=== PATIENT | male | born 1985 | race African-American/Black ===

== ENCOUNTER 2019-09-07 07:07 | Day surgery (SDC) | payer BC ==
[2019-09-06 17:35] VITALS: BMI 21.4
[2019-09-07] MEDS ORDERED: LIDOCAINE HCL 1%, 10 MG/ML (20ML VIAL) ONE (08:22)
[2019-09-07] MEDS ORDERED: MIDAZOLAM HCL 2 MG/2 ML SINGLE DOSE VIAL ONE ×3 (08:38→09:35)
[2019-09-07] MEDS ORDERED: ROCURONIUM BROMIDE 50 MG/5 ML SYRINGE ONE (08:39)
[2019-09-07] MEDS ORDERED: SUCCINYLCHOLINE CHLORIDE 200 MG/10 ML SYRINGE ONE (08:39)
[2019-09-07] MEDS ORDERED: PROPOFOL 20 ML ONE ×2 (08:39)
[2019-09-07] MEDS ORDERED: ONDANSETRON 4 MG/2 ML VIAL IVPUSH PRN (08:54)
[2019-09-07] MEDS ORDERED: LACTATED RINGERS SOLUTION 1,000 ML IV SCH (09:00)
--- NOTE | 2019-09-07 09:18 | HP ---
Admitting History and Physical - Admission Chief Complaint: bilateral upper ext weakness. Here for muscle biopsy left biceps Limitations to Obtaining History: No Limitations - Smoking History Smoking history: Never smoked Have you smoked in the past 12 months: No - Alcohol/Substance Use Hx Alcohol Use: Yes (OCCAS) Home Medications - Allergies Allergies/Adverse Reactions: Allergies Allergy/AdvReac Type Severity Reaction Status Date / Time No Known Allergies Allergy Verified 09/06/19 17:36 - Home Medications Home Medications: Ambulatory Orders NK [No Known Home Medication] 09/06/19 Review of Systems - Review of Systems Constitutional: reports: No Symptoms Eyes: reports: No Symptoms HENT: reports: No Symptoms Neck: reports: No Symptoms Cardiovascular: reports: No Symptoms Respiratory: reports: No Symptoms Gastrointestinal: reports: No Symptoms Genitourinary: reports: No Symptoms Musculoskeletal: reports: No Symptoms Integumentary: reports: No Symptoms Neurological: reports: No Symptoms Endocrine: reports: No Symptoms Hematology/Lymphatic: reports: No Symptoms Psychiatric: reports: No Symptoms Physical Examination Vital Signs: Vital Signs Temperature 98.3 F 09/07/19 07:27 Pulse Rate 88 09/07/19 07:27 Respiratory Rate 18 09/07/19 07:27 Blood Pressure 124/77 09/07/19 07:27 O2 Sat by Pulse Oximetry (%) Constitutional: Yes: Well Nourished, No Distress, Calm Eyes: Yes: WNL, Conjunctiva Clear, EOM Intact HENT: Yes: WNL, Atraumatic, Normocephalic Neck: Yes: WNL, Supple, Trachea Midline Cardiovascular: Yes: WNL, Regular Rate and Rhythm Respiratory: Yes: WNL, Regular, CTA Bilaterally Gastrointestinal: Yes: WNL, Normal Bowel Sounds Musculoskeletal: Yes: WNL Extremities: Yes: WNL Edema: No Peripheral Pulses WNL: Yes Integumentary: Yes: WNL Neurological: Yes: WNL, Alert, Oriented ...Motor Strength: WNL Psychiatric: Yes: WNL Problem List - Problems (1) Upper extremity weakness Assessment/Plan: for left biceps muscle biopsy today Code(s): R29.898 - [facility] SYMPTOMS AND SIGNS INVOLVING THE MUSCULOSKELETAL SYSTEM
[2019-09-07] MEDS ORDERED: ceFAZolin SODIUM 1 GM VIAL IVPB ONE (09:39)
[2019-09-07] MEDS ORDERED: LIDOCAINE HCL 1%, 10 MG/ML (20ML VIAL) NR ONE (09:39)
--- NOTE | 2019-09-07 10:15 | OP ---
Operative Note - Note: Operative Date: 09/07/19 Pre-Operative Diagnosis: upper extremity weakness Operation: Left biceps muscle biopsy Post-Operative Diagnosis: Same as Pre-op Surgeon: Tio Alvares Anesthesia: Fractional Estimated Blood Loss (mls): 20 Operative Report Dictated: Yes
--- NOTE | 2019-09-07 11:05 | OP ---
DATE OF OPERATION: 09/07/2019 PREOPERATIVE DIAGNOSIS: Upper extremity weakness. POSTOPERATIVE DIAGNOSIS: Upper extremity weakness. PROCEDURE: Left biceps muscle biopsy. SURGEON: Tio Jimenez DO ANESTHESIA: Fractional. BLOOD LOSS: 20 mL. Patient is a 34-year-old male referred from Neurology for upper extremity weakness. After EMGs, Neurology is asking for a left biceps muscle biopsy. Patient was consented for the procedure, understanding all risks, benefits, and alternatives; was then taken to the operating room. Once in the operating room, he was laid on the operating table in supine manner, and the area of the left arm was prepped and draped in a sterile surgical manner. We then went ahead and injected 15 mL of lidocaine 1% over the left biceps. We then took a 15 blade and made a 4-cm incision. Bovie electrocautery was used to control hemostasis, and we were able to get down through all the subcutaneous tissue and get down to our fascia. Once the fascia was opened, the muscle was exposed. We took an Allis clamp, and the muscle was picked up. Using Metzenbaum scissors, we were able to excise the muscle and send it down to Pathology. Bovie electrocautery was then used to control hemostasis, 3-0 Vicryl was used and the fascia was approximately. The fascia was approximated in an interrupted manner, and the skin was closed with skin britta. Area was wet and dried. Dermabond was placed . Tegaderm was placed. Patient tolerated the procedure with no complications. Patient transferred to PACU in stable condition. TIO JIMENEZ DO STAPLE PROCESSING MACHINE OPERATOR/[id number]
[2019-09-07 11:29] VITALS: TEMP 97.5
[2019-09-07 12:14] VITALS: PULSE 72
[2019-09-07 12:31] VITALS: BP 108/69
--- NOTE | 2019-09-18 16:37 | PATH ---
Surgical Pathology Report Patient Name: CARL HERNANDEZ Med. Rec. #: [id number] /Age/Gender: 1985 (Age: 34) / M Account: [id number] Location: [facility] Taken: 09/07/2019 Received: 09/07/2019 Reported: 09/18/2019 Physicians: Tio Alvares Specimen(s) Received LEFT BICEP MUSCLE BIOPSY Clinical History Polymyositis left upper extremity Final Diagnosis MUSCLE, LEFT BICEPS, BIOPSY: SKELETAL MUSCLE WITH CHRONIC HISTOARCHITECTURAL ABNORMALITY (SEE COMMENT). Comment: This biopsy reveals chronic histoarchitectural abnormality. 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 Inflammation is limited to several mononuclear cells infiltrating into myonecrotic foci. In light of the patients relatively young age of onset, and of MHC class I upregulation, morphological differential diagnosis amongst chronic myopathies might include hereditary myopathies such as various muscular dystrophies (e.g. limb-girdle, facioscapulohumeral, scapuloperoneal, oculopharyngeal ), distal myopathies, and less favorably myofibrillar myopathy, as well as immune-mediated etiology such as immune-mediated necrotizing myopathy. Other possible causes of chronic myopathy such as infectious/post-infectious, myotoxic/iatrogenic, and nutritional/ metabolic are to clinically ruled out. This case was sent for consultation and work-up to Dr. Ava Mays from [place], [place], the diagnosis reflects her opinion ([id number]). See [facility] report for additional details ([id number]). Electronically Signed Edmund Gonzalez M.D. Gross Description Received fresh labeled "left bicep muscle biopsy," are 2 chavarria-brown, cylindrical portions of muscle averaging 0.6 cm in length and 0.4 cm in diameter. The specimen is divided, placed into 10% buffered formalin, glutaraldehyde and saline moistened gauze. The specimen is sent to [facility] for further studies. DL/09/07/2019 saudi09/07/2019
== END 2019-09-07 12:31 | disposition home or self-care (01) ==
LOC: JASU-SURG 07:07
PROVIDERS: ATTEND Surgery Vascular Surgery
PROC: 0KB80ZX Excision of Left Upper Arm Muscle, Open Approach, Diagnostic (ICD-10-PCS; principal; 2019-09-07 09:00)
DX: R53.1 Weakness (principal)
CPT/HCPCS: 88305-TC; 94760

== ENCOUNTER 2020-12-09 20:37 | Emergency (ER) | payer OTHER, BC ==
[2020-12-09 20:46] VITALS: BP 105/69; PULSE 90; TEMP 98.1; BMI 23.7
[2020-12-09] MEDS ORDERED: IBUPROFEN 600 MG TABLET (FP) PO ONE ×2 (21:25→21:27)
== END 2020-12-09 22:20 | disposition home or self-care (01) ==
LOC: JER 20:37
DX: M79.672 Pain in left foot (principal)
CPT/HCPCS: 73630-TC-LT; 99283-25

== ENCOUNTER 2021-05-04 17:47 | Emergency (ER) | payer OTHER ==
[2021-05-04 17:57] VITALS: BP 111/72; PULSE 65; TEMP 97; BMI 23.6
[2021-05-04] MEDS ORDERED: KETOROLAC TROMETHAMINE 30 MG/1 ML VIAL IM ONE (18:20)
[2021-05-04] MEDS ORDERED: KETOROLAC TROMETHAMINE 30 MG/1 ML VIAL ONE ×2 (20:17→21:56)
== END 2021-05-04 22:18 | disposition home or self-care (01) ==
LOC: JERFT 17:47
PROC: 3E023GC Introduction of Other Therapeutic Substance into Muscle, Percutaneous Approach (ICD-10-PCS; principal; 2021-05-04)
DX: M25.572 Pain in left ankle and joints of left foot (principal); R07.81 Pleurodynia
CPT/HCPCS: 71046-TC-FY; 71101-TC-LT-FY; 73590-TC-LT-FY; 73610-TC-LT-FY; 73630-TC-LT; 99284-25